=== PATIENT | female | born 1980 ===

== ENCOUNTER → 2024-01-03 | Outpatient (CLI) | payer OTHER ==
--- NOTE | 2024-01-04 15:36 | XR ---
EXAMINATION TYPE: XR foot complete 3 views LT DATE OF EXAM: 01/03/2024 Comparison: None Clinical History: 43-year-old female [id number] LT FOOT PAIN Findings: Moderate sized plantar heel spur. No acute fracture, subluxation, dislocation. Impression: Moderate size plantar heel spur. No acute osseous abnormality seen.
== END | disposition home or self-care (01) ==
LOC: RADXRYALE 11:43
PROVIDERS: ATTEND Internal Medicine
DX: M79.672 Pain in left foot (principal); M77.32 Calcaneal spur, left foot

== ENCOUNTER → 2025-05-14 | Outpatient (CLI) | payer SELFPAY ==
--- NOTE | 2025-05-14 13:16 | MM ---
Reason for Exam: Screening (asymptomatic). Patient History: Menarche at age 11. First Full-Term at age 26. Currently using Hormonal Contraceptives, starting at age 25. Risk Values: Imelda 5 year model risk: 0.6%. NCI Lifetime model risk: 8.3%. Prior Study Comparison: No prior studies available for comparison. Tissue Density: The breasts are almost entirely fatty. Findings: Analyzed By CAD. There are 2 masses in the right breast posterior depth upper outer quadrant approximately 15 centers the nipple measuring 24 mm. The next is 10 cm from nipple measuring 9 mm. Left breast asymmetry 8.2 centers nipple measuring 8 mm located in the inferior lateral aspect middle depth. Overall Assessment: Incomplete: need additional imaging evaluation, BI-RAD 0 Management: Diagnostic Breast Ultrasound of both breasts. [facility] will attempt to contact patient to return for supplemental views and ultrasound if indicated. Patient should continue monthly self-breast exams. A clinical breast exam by your physician is recommended on an annual basis. This exam should not preclude additional follow-up of suspicious palpable abnormalities. Note on Imelda scores and lifetime risk: 1. A Imelda score greater than 3% is considered moderate risk. If this is the case, consider specialist referral to assess eligibility for a risk reducing agent. 2. If overall lifetime risk for the development of breast cancer is 20% or higher, the patient may qualify for future screening with alternating mammogram and breast MRI. [facility], , 05/14/2025 1:12 PM. Electronically signed and approved by: Kai Griffin DO
== END | disposition home or self-care (01) ==
LOC: RADMAMWWP 10:58
PROVIDERS: ATTEND Family Medicine
DX: Z12.31 Encounter for screening mammogram for malignant neoplasm of breast (principal); R92.313 Mammographic fatty tissue density, bilateral breasts; Z79.3 Long term (current) use of hormonal contraceptives
CPT/HCPCS: 77067

== ENCOUNTER → 2025-05-16 | Outpatient (CLI) | payer SELFPAY ==
--- NOTE | 2025-05-16 08:57 | MM ---
Reason for Exam: Additional evaluation requested from abnormal screening. Last screening mammogram was performed less than 1 month ago. Patient History: Menarche at age 11. First Full-Term at age 26. Currently using Hormonal Contraceptives, starting at age 25. Last menstrual period: 05/15/2025 Risk Values: Imelda 5 year model risk: 0.6%. NCI Lifetime model risk: 8.3%. Prior Study Comparison: 05/14/2025 Bilateral MG screening mammo w CAD, [facility]. Tissue Density: The breasts are almost entirely fatty. Findings: Analyzed By CAD. Redemonstration of oval left mass breast inferior aspect around 6:00 8.6 cm from the nipple measuring 10 mm. Redemonstration of oval right mass breast mass upper outer aspect 9.4 solution nipple measuring 9 mm. Overall Assessment: Incomplete: need additional imaging evaluation, BI-RAD 0 Management: Diagnostic Breast Ultrasound of both breasts. Results were given to the patient verbally at the time of exam. Patient should continue monthly self-breast exams. A clinical breast exam by your physician is recommended on an annual basis. This exam should not preclude additional follow-up of suspicious palpable abnormalities. Note on Imelda scores and lifetime risk: 1. A Imelda score greater than 3% is considered moderate risk. If this is the case, consider specialist referral to assess eligibility for a risk reducing agent. 2. If overall lifetime risk for the development of breast cancer is 20% or higher, the patient may qualify for future screening with alternating mammogram and breast MRI. [facility], , 05/16/2025 8:54 AM. Electronically signed and approved by: Kai Griffin DO
--- NOTE | 2025-05-16 10:44 | USB ---
Reason for Exam: Additional evaluation requested from abnormal screening. Patient History: Menarche at age 11. First Full-Term at age 26. Currently using Hormonal Contraceptives, starting at age 25. Risk Values: Imelda 5 year model risk: 0.6%. NCI Lifetime model risk: 8.3%. Technique: Method: Targeted. Prior Study Comparison: 05/14/2025 Bilateral MG screening mammo w CAD, [facility]. Findings: The upper outer quadrant of the right breast, the lower outer quadrant of the left breast, the axilla of both breasts and the retroareolar of both breasts were scanned. Technique utilized:US breast workup limited LUIGI Image; Ultrasound imaging of: Area of concern, retroareolar region and axilla. * Right breast elongated hypoechoic probable cyst measuring 7 x 3 x 7 mm at 10:00 10 cm from the nipple. Finding likely represents small cyst. * Left breast Oval circumscribed hypoechoic mass measuring 9 x 6 x 6 mm at 4:00 8 cm from the nipple. Finding likely represents benign fibroadenoma given patient's age. Negative bilateral axillas. Overall Assessment: Probably benign, BI-RAD 3 Management: Diagnostic Breast Ultrasound of both breasts in 6 months. A clinical breast exam by your physician is recommended on an annual basis and results should be correlated with mammographic findings. This exam should not preclude additional follow-up of suspicious palpable abnormalities. Results were given to the patient verbally at the time of exam. [facility], , 05/16/2025 10:40 AM. Electronically signed and approved by: Kai Griffin DO
== END | disposition home or self-care (01) ==
LOC: RADMAMWWP 08:20
PROVIDERS: ATTEND Family Medicine
DX: R92.8 Other abnormal and inconclusive findings on diagnostic imaging of breast (principal); R92.313 Mammographic fatty tissue density, bilateral breasts; Z92.0 Personal history of contraception
CPT/HCPCS: 77062; 77066